=== PATIENT | female | born 1930 | race Caucasian/White ===

== ENCOUNTER 2016-04-20 21:24 | Inpatient (IN) | payer OTHER, BC ==
[~2016-04-20] VITALS: Ht 165.1 cm; Wt 60.8 kg
--- NOTE | ~2016-04-20 | EKG ---
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
[2016-04-20 21:24] VITALS: BP 157/89
[~2016-04-20 21:24] MED LIST: ACETAMINOPHEN325 M1 PO; ALAWAY10 ML OP; ASPIRIN EC81 M1 PO; BENADRYL25 MG PO; BYSTOLIC 5 MG5 M1 PO; BYSTOLIC10 MG PO; CALCIUM 500 +1 EAC5 PO; CIPROFLOXACIN500 M1 PO; COZAAR100 MG PO; CRESTOR10 MG PO; DETROL2 M1 PO; FISH OIL 1,0001 EAC5 PO; FISH OIL 1,001000 M2 PO; FISH OIL 1,2001 EAC4 PO; LEVAQUIN 750 M750 MG PO; LOPERAMIDE 2 MG2 M1 PO; LOSARTAN-HCTZ1 EAC2 PO; MECLIZINE HCL12.5 MG PO; MICARDIS40 MG PO; MOTION RELIEF25 MG PO; MULTIVITAM9 MG/15 M1 PO; RESTORIL15 MG PO; TUMS PO; VALIUM2 MG PO; VITAMIN D32000 UNIT PO; ZETIA10 MG PO; ZOFRAN ODT4 MG PO; ZOFRAN4 MG PO
[2016-04-20] MEDS ORDERED: COREG6.25 MG PO (21:38)
[2016-04-20] MEDS ORDERED: AMLODIPINE BESY10 MG PO (21:38)
[2016-04-20] MEDS ORDERED: DONEPEZIL HCL 55 M1 PO (21:39)
[2016-04-20] MEDS ORDERED: LIPITOR 20 MG T20 M1 PO (21:40)
[2016-04-20] MEDS ORDERED: REMERON15 MG PO (21:40)
[2016-04-20] MEDS ORDERED: DOK100 MG PO (21:42)
[2016-04-20] MEDS ORDERED: DEPAKOTE 250MG250 M1 PO (21:42)
[2016-04-20] MEDS ORDERED: SENNALAX-S TAB1 EACH PO (21:44)
[2016-04-20] MEDS ORDERED: SINEMET 25-1001 EAC1 PO (21:44)
[2016-04-20] MEDS ORDERED: MAPAP325 MG PO (21:45)
[2016-04-20] MEDS ORDERED: MELATONIN3 MG PO (21:45)
[2016-04-20] MEDS ORDERED: MIRALAX17 GM PO (21:46)
[2016-04-20] MEDS ORDERED: LIDODERM 5%1 PATC1 TRANSDERM (21:46)
[2016-04-20 22:01] LABS: HEMATOCRIT 37.6 % (37.0-47.0); HEMOGLOBIN 12.4 gm/dL (12.0-15.0); MCH 29.7 pg (26.0-34.0); MCHC 33.1 % (28.0-37.0); MCV 89.8 fL (80.0-100.0); PLATELET COUNT 170 thou/uL (150-400); RBC 4.19 mil/uL (4.20-5.00); RDW 14.4 % (10.5-14.5); WBC 10.5 thou/uL (4.0-11.0)
[2016-04-20 22:04] LABS: MANUAL DIFF YES
[2016-04-20 22:09] LABS: ANION GAP 8 mmol/L (7-16); BUN 19 mg/dL (7-18); CALCIUM 8.7 mg/dL (8.5-10.1); CHLORIDE 101 mmol/L (98-107); CO2 29 mmol/L (21-32); CREATININE 0.6 mg/dL (0.6-1.3); GLUCOSE 111 mg/dL (70-99); SODIUM 138 mmol/L (136-145)
[2016-04-20 22:21] LABS: URINE BILIRUBIN NEGATIVE (Negative); URINE BLOOD TRACE (Negative); URINE COLOR YELLOW; URINE GLUCOSE-RANDOM* NEGATIVE (Negative); URINE KETONES 2+ (Negative); URINE LEUKOCYTES-REFLEX NEGATIVE (Negative); URINE PROTEIN (DIPSTICK) NEGATIVE (Negative); URINE SPECIFIC GRAVITY 1.015 (1.003-1.035); URINE UROBILINOGEN 0.2 E.U./dl (0.2-1.0)
[2016-04-20 22:22] LABS: ALBUMIN 3.4 g/dL (3.4-5.0); ALKALINE PHOSPHATASE 107 U/L (46-116); NT-PRO BRAIN NAT PEPTIDE 786 pg/mL (<300); SGOT 11 U/L (15-37); TOTAL BILIRUBIN 0.6 mg/dL (<0.1-1.0); TROPONIN-I < 0.04 ng/mL (<0.04-0.07)
[2016-04-20 22:25] LABS: ABSOLUTE NEUTROPHILS 8.6 thou/uL (1.4-8.2); TOTAL CELL COUNT 100
[2016-04-20 22:26] LABS: ANISOCYTOSIS 1+; POIKILOCYTOSIS SLIGHT
[2016-04-20 22:35] LABS: SGPT < 6 U/L (30-65)
[2016-04-20 23:37] VITALS: BP 143/79
[2016-04-20 23:51] VITALS: BP 125/57
[2016-04-21 04:01] LABS: ANION GAP 8 mmol/L (7-16); BUN 13 mg/dL (7-18); CALCIUM 7.8 mg/dL (8.5-10.1); CHLORIDE 106 mmol/L (98-107); CO2 27 mmol/L (21-32); CREATININE 0.5 mg/dL (0.6-1.3); GLUCOSE 97 mg/dL (70-99); POTASSIUM 3.5 mmol/L (3.5-5.1); SODIUM 141 mmol/L (136-145); TROPONIN-I < 0.04 ng/mL (<0.04-0.07)
[2016-04-21 04:27] VITALS: BP 131/60
[2016-04-21] MEDS ORDERED: ZETIA10 MG PO (08:40)
[2016-04-21] MEDS ORDERED: REMERON15 MG PO (08:40)
[2016-04-21 09:01] VITALS: BP 92/38
[2016-04-21 15:49] VITALS: BP 149/62
[2016-04-21 19:09] LABS: TSH 1.87 uIU/mL (0.450-4.500)
[2016-04-21 20:05] VITALS: BP 161/61
[2016-04-22 03:52] LABS: HEMATOCRIT 35.1 % (37.0-47.0); HEMOGLOBIN 11.4 gm/dL (12.0-15.0); MCH 29.8 pg (26.0-34.0); MCHC 32.5 % (28.0-37.0); MCV 91.5 fL (80.0-100.0); RBC 3.83 mil/uL (4.20-5.00); RDW 14.1 % (10.5-14.5); WBC 5.1 thou/uL (4.0-11.0)
[2016-04-22 04:11] VITALS: BP 147/59
[2016-04-22 04:48] LABS: ALBUMIN 2.6 g/dL (3.4-5.0); ALKALINE PHOSPHATASE 81 U/L (46-116); ANION GAP 10 mmol/L (7-16); BUN 7 mg/dL (7-18); CALCIUM 8.1 mg/dL (8.5-10.1); CHLORIDE 106 mmol/L (98-107); CO2 27 mmol/L (21-32); CREATININE 0.5 mg/dL (0.6-1.3); GLUCOSE 84 mg/dL (70-99); MAGNESIUM 1.9 mg/dL (1.8-2.4); POTASSIUM 3.1 mmol/L (3.5-5.1); SGOT 8 U/L (15-37); SODIUM 143 mmol/L (136-145); TOTAL BILIRUBIN 0.4 mg/dL (<0.1-1.0); TOTAL PROTEIN 5.9 g/dL (6.4-8.2)
[2016-04-22 04:51] LABS: SGPT < 6 U/L (30-65)
[2016-04-22 10:07] VITALS: BP 151/76
[2016-04-22 20:32] VITALS: BP 140/63
[2016-04-23 03:50] VITALS: BP 118/57
[2016-04-23 07:15] VITALS: BP 143/53
[2016-04-23 12:14] VITALS: BP 143/53
[2016-04-23 22:08] LABS: INFLUENZA B Negative (Negative); METAPNEUMOVIRUS Negative (Negative)
== END 2016-04-23 16:14 | DRG 865 ==
LOC: ER 21:24 → 5S 23:05 → EROBS 23:05 → 5S 23:38
PROVIDERS: Emergency Medicine; Hospitalist; Nurse Practitioner
DX: B34.9 Viral infection, unspecified (principal); G92 Toxic encephalopathy; E43 Unspecified severe protein-calorie malnutrition; E86.0 Dehydration; F03.90 Unspecified dementia, unspecified severity, without behavioral disturbance, psychotic disturbance, mood disturbance, and anxiety; H81.09 Meniere's disease, unspecified ear; I95.9 Hypotension, unspecified; Z88.8 Allergy status to other drugs, medicaments and biological substances; Z88.2 Allergy status to sulfonamides; Z90.710 Acquired absence of both cervix and uterus; Z95.5 Presence of coronary angioplasty implant and graft; Z86.19 Personal history of other infectious and parasitic diseases; Z79.82 Long term (current) use of aspirin; Z79.899 Other long term (current) drug therapy; Z88.6 Allergy status to analgesic agent; Z85.3 Personal history of malignant neoplasm of breast; Z68.22 Body mass index [BMI] 22.0-22.9, adult

== ENCOUNTER 2016-12-04 19:55 | Emergency (ER) | payer OTHER, BC ==
[~2016-12-04] VITALS: Ht 162.6 cm; Wt 56.7 kg
--- NOTE | ~2016-12-04 | EKG ---
[place] [address] 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
[~2016-12-04 19:55] MED LIST changes: +AMLODIPINE BESY10 MG PO; +COREG6.25 MG PO; +DEPAKOTE 250MG250 M1 PO; +DOK100 MG PO; +DONEPEZIL HCL 55 M1 PO; +LIDODERM 5%1 PATC1 TRANSDERM; +LIPITOR 20 MG T20 M1 PO; +MAPAP325 MG PO; +MELATONIN3 MG PO; +MIRALAX17 GM PO; +REMERON15 MG PO; +SENNALAX-S TAB1 EACH PO; +SINEMET 25-1001 EAC1 PO
[2016-12-04 20:26] LABS: ABSOLUTE NEUTROPHILS 3.3 thou/uL (1.4-8.2); BASOPHILS 0.7 % (0.0-2.0); EOSINOPHILS 2.7 % (0.0-3.0); HEMATOCRIT 39.2 % (37.0-47.0); HEMOGLOBIN 13.3 gm/dL (12.0-15.0); LYMPHOCYTES 36.7 % (24.0-44.0); MCH 30.7 pg (26.0-34.0); MCHC 33.8 g/dL (28.0-37.0); MCV 90.8 fL (80.0-100.0); MONOCYTES 7.6 % (1.0-8.0); PLATELET COUNT 121 thou/uL (150-400); POLYS 52.3 % (36.0-66.0); RBC 4.32 mil/uL (4.20-5.00); RDW 14.6 % (10.5-14.5); WBC 6.3 thou/uL (4.0-11.0)
[2016-12-04 20:27] LABS: MANUAL DIFF NO
[2016-12-04 20:34] LABS: ANION GAP 6 mmol/L (7-16); BUN 18 mg/dL (7-18); CALCIUM 9.1 mg/dL (8.5-10.1); CHLORIDE 106 mmol/L (98-107); CO2 31 mmol/L (21-32); CREATININE 0.8 mg/dL (0.6-1.0); GLUCOSE 125 mg/dL (74-106); POTASSIUM 4.7 mmol/L (3.5-5.1); SODIUM 143 mmol/L (136-145)
[2016-12-04 20:43] LABS: ALBUMIN 3.6 g/dL (3.4-5.0); ALKALINE PHOSPHATASE 110 U/L (46-116); MAGNESIUM 2.2 mg/dL (1.8-2.4); SGOT 17 U/L (15-37); SGPT 6 U/L (30-65); TOTAL BILIRUBIN 0.6 mg/dL (<0.1-1.0); TOTAL PROTEIN 7.2 g/dL (6.4-8.2); TROPONIN-I < 0.04 ng/mL (<0.04-0.07)
[2016-12-04 22:44] LABS: URINE BILIRUBIN NEGATIVE (Negative); URINE BLOOD NEGATIVE (Negative); URINE COLOR YELLOW; URINE GLUCOSE-RANDOM* NEGATIVE (Negative); URINE KETONES NEGATIVE (Negative); URINE NITRITE NEGATIVE (Negative); URINE PROTEIN (DIPSTICK) NEGATIVE (Negative); URINE UROBILINOGEN 0.2 E.U./dl (0.2-1.0)
== END 2016-12-04 23:13 | disposition home or self-care (01) ==
LOC: ER 19:55
PROVIDERS: Nurse Practitioner Family
DX: R55 Syncope and collapse (principal); F03.90 Unspecified dementia, unspecified severity, without behavioral disturbance, psychotic disturbance, mood disturbance, and anxiety; Z95.5 Presence of coronary angioplasty implant and graft; Z90.710 Acquired absence of both cervix and uterus; Z90.12 Acquired absence of left breast and nipple; Z85.3 Personal history of malignant neoplasm of breast; Z88.1 Allergy status to other antibiotic agents; Z88.2 Allergy status to sulfonamides; Z88.5 Allergy status to narcotic agent; Z88.6 Allergy status to analgesic agent; Z88.8 Allergy status to other drugs, medicaments and biological substances